=== PATIENT | male | born 1950 | race African-American/Black ===

== ENCOUNTER 2020-04-15 12:51 | Emergency (ER) | payer MEDICARE, SELFPAY ==
[2020-04-15 12:56] VITALS: BP 155/76; PULSE 106; RESP 18; TEMP 36.3; O2SAT 97
--- NOTE | 2020-04-15 13:10 | ECG_ITS ---
Measurements Intervals [place] Rate: 87 P: NV: 0 QRS: 72 QRSD: 89 T: 72 QT: 377 QTc: 454 Interpretive Statements SINUS RHYTHM ATRIAL PREMATURE COMPLEXES NONSPECIFIC T-WAVE ABNORMALITY- INFERIOR LEADS BASELINE ARTIFACT- I, II, AVR, AVL, AVF, V1-V6 ABNORMAL ECG Electronically Signed On 04-15-2020 13:34:28 CLINICAL NURSING DIRECTOR by Erik Hart D.O.
[2020-04-15 15:00] VITALS: BP 146/78; PULSE 88; RESP 16; O2SAT 100
--- NOTE | 2020-04-15 15:09 | ED.GENADULT ---
HPI - General Adult General Chief complaint: Allergic Reaction Stated complaint: reaction to omeprazole Time Seen by Provider: 04/15/20 13:40 Source: patient Mode of arrival: ambulatory Limitations: no limitations History of Present Illness HPI narrative: Patient is a 69-year-old male who presented to emergency department for evaluation of concern for not feeling well that has been present for 2 weeks noting that he started to feel this way when he began to take omeprazole for reflux patient on arrival to emergency department is in no distress denying any pain or recent illness patient discontinued taking his omeprazole this morning patient is followed by primary care for this patient in no distress upon arrival denying any pain Related Data Allergies Allergy/AdvReac Type Severity Reaction Status Date / Time codeine Allergy Anaphylactic Verified 04/15/20 13:02 Shock Review of Systems Review of Systems: All systems reviewed & are unremarkable except as noted in HPI and below PMFSH Past Medical History Medical History Gastroesophageal reflux disease IBS (irritable bowel syndrome) Social History Social History Smoking status: Never smoker Gender identity (if verbalized by the patient): Female Exam Narrative: Exam Narrative: GENERAL: Well-appearing, well-nourished, and in no acute distress. HEAD: Normocephalic, atraumatic. EYES: PERRLA and EOMI. ENT: Nares clear, no rhinorrhea or epistaxis. Mucous membranes moist. CHEST: Clear to auscultation. No respiratory distress. No wheezes rales or rhonchi HEART: Regular rate and rhythm. No murmur heard. Normal peripheral pulses. ABDOMEN: Soft, nontender, nondistended EXTREMITIES: Normal range of motion. No edema. SKIN: Warm, dry, no rash. NEURO: No focal deficits. Alert and oriented x3. Cranial nerves II through XII grossly intact. Normal speech and gait PSYCH: Normal mood and affect. Course Course Emergency Course: Patient in the room no distress no high risk changes in the evaluation will be discharged home ABCs and vital signs intact and stable Vital Signs Vital signs: Vital Signs Temperature 97.3 F L 04/15/20 12:56 Pulse Rate 106 H 04/15/20 12:56 Respiratory Rate 18 04/15/20 12:56 Blood Pressure 155/76 H 04/15/20 12:56 Pulse Oximetry 97 04/15/20 12:56 Temperature 97.3 F L 04/15/20 12:56 Pulse Rate 106 H 04/15/20 12:56 Respiratory Rate 18 04/15/20 12:56 Blood Pressure 155/76 H 04/15/20 12:56 Pulse Oximetry 97 04/15/20 12:56 Medical Decision Making MDM Narrative Medical decision making narrative: Patient advised to discontinue taking his omeprazole as the symptoms began around the time of beginning it will be switched to a different medication hemodynamically stable no distress felt appropriate for outpatient reevaluation provided with reasons to return patient agrees with this plan Vital Signs Vital Signs: Vital Signs Temperature 97.3 F L 04/15/20 12:56 Pulse Rate 106 H 04/15/20 12:56 Respiratory Rate 18 04/15/20 12:56 Blood Pressure 155/76 H 04/15/20 12:56 Pulse Oximetry 97 04/15/20 12:56 Temperature 97.3 F L 04/15/20 12:56 Pulse Rate 106 H 04/15/20 12:56 Respiratory Rate 18 04/15/20 12:56 Blood Pressure 155/76 H 04/15/20 12:56 Pulse Oximetry 97 04/15/20 12:56 Lab Data Result diagrams: 04/15/20 15:35 04/15/20 15:36 Labs: Lab Results 04/15/20 04/15/20 04/15/20 Range/Units 15:35 15:35 15:36 WBC 6.7 (4.5-10.0) K/mm3 RBC 5.12 (4.6-6.20) M/mm3 Hgb 14.8 (14.0-18.0) g/dL Hct 46.6 (42.0-52.0) % MCV 91.0 (80-100) fl MCH 28.9 (26-34) pg MCHC 31.8 L (32-36) g/dl RDW 12.9 (11.5-14.5) % Plt Count 240 (150-375) k/mm3 MPV 9.8 (7.4-10.4) fl Immature Gran % (Auto) 0.4 (0-0.5) % Neut % (Auto) 65.
[2020-04-15 15:45] LABS: Basophils Percent Auto 0.4 % (0.2-1.2); Eosinophils Percent Auto 0.6 % (0-4.4); Hematocrit 46.6 % (42.0-52.0); Hemoglobin 14.8 g/dL (14.0-18.0); Immature Granulocyte Absolute 0.03 K/mm3 (0.00-0.031); Immature Granulocyte Percent A 0.4 % (0-0.5); Lymphocytes Absolute Auto 1.56 K/mm3 (0.9-3.2); Lymphocytes Percent Auto 23.3 % (18.3-44.2); Mean Corpuscular HGB Conc 31.8 g/dl (32-36); Mean Corpuscular Hemoglobin 28.9 pg (26-34); Mean Platelet Volume 9.8 fl (7.4-10.4); Monocytes Absolute Auto 0.6 K/mm3 (0.1-0.6); Monocytes Percent Auto 9.6 % (2.6-8.5); Neutrophils Absolute Auto 4.4 K/mm3 (1.3-6.7); Neutrophils Percent Auto 65.7 % (45.5-73.1); Platelet Count Result 240 k/mm3 (150-375); Red Blood Count 5.12 M/mm3 (4.6-6.20); Red Cell Distribution Width 12.9 % (11.5-14.5); White Blood Count 6.7 K/mm3 (4.5-10.0)
[2020-04-15 15:47] LABS: Add Urine Microscopic? NO; Appearance Urine Clear (Clear); Bilirubin Urine Negative (Negative); Blood Urine Negative (Negative); Color Urine Straw (Yellow); Glucose Urine UA Negative (Negative); Ketones Urine Negative (Negative); Leukocyte Esterase Ur Negative LEU/UL (Negative); Nitrate Urine Negative (Negative); Protein Urine Negative (Negative); Specific Grav Ur 1.005 (1.001-1.035); Urobilinogen Urine Negative mg/dL (<2.0)
[2020-04-15 15:58] LABS: Alanine Aminotransferase 22 U/L (4-50); Albumin Level 4.7 g/dL (3.5-5.1); Alkaline Phosphatase 68 U/L (38-126); Anion Gap 7 mmol/L (8-16); Aspartate Amino Transferase 36 U/L (17-59); Bilirubin,Total 0.5 mg/dL (0.2-1.3); Blood Urea Nitrogen 12 mg/dL (9-20); Calcium 9.5 mg/dL (8.4-10.2); Carbon Dioxide 30 mmol/L (22-30); Chloride 104 mmol/L (98-107); Estimated CRCL calculation 71 ml/min; Estimated Glomerular Filt Rate > 60; Glucose 97 mg/dL (75-110); Sodium 141 mmol/L (137-145)
== END 2020-04-15 16:53 | disposition home or self-care (01) ==
PROVIDERS: Emergency Medicine Emergency Medical Services; Emergency Provider Emergency Medicine; PCP Internal Medicine
DX: R42 Dizziness and giddiness (principal); T47.1X5A Adverse effect of other antacids and anti-gastric-secretion drugs, initial encounter; K21.9 Gastro-esophageal reflux disease without esophagitis; K58.9 Irritable bowel syndrome, unspecified; I49.1 Atrial premature depolarization; R94.31 Abnormal electrocardiogram [ECG] [EKG]
CPT/HCPCS: 36415; 80053; 81003; 85025; 93005; 99283

== ENCOUNTER 2024-06-10 15:09 | Emergency (ER) | payer MEDICARE, SELFPAY ==
[2024-06-10] VITALS (19 sets, daily range): BP systolic 121–155; BP diastolic 72–91; PULSE 62–83; RESP 11–20; TEMP 36.4–36.6; O2SAT 93–100
--- NOTE | ~2024-06-10 | XR_ITS ---
EXAMINATION: XR chest 2V DATE: 06/10/2024 15:35 INDICATION: Chest pain TECHNIQUE: PA and lateral views of the chest were obtained. COMPARISON: None FINDINGS: The lungs are clear with no focal airspace opacities, pulmonary edema, pleural effusion or pneumothor ax. The cardiomediastinal silhouette is normal. Mild thoracic spondylosis with chronic appearing mini mal to mild anterior wedging of a few mid thoracic vertebral bodies. IMPRESSION: 1. No acute cardiopulmonary disease. Reviewed, dictated and finalized at location B.
--- NOTE | 2024-06-10 15:12 | ECG_ITS ---
Test Date: 2024-06-10 15:24:38 Measurements Intervals [place] Rate: 85 P: 81 CT: 148 QRS: 70 QRSD: 95 T: 54 QT: 377 QTc: 449 Interpretive Statements SINUS RHYTHM MINIMAL Q WAVES- INF/LAT LEADS BORDERLINE ECG No previous ECG available for comparison Electronically Signed On 06-10-2024 17:04:31 CDT by Erik Hart D.O.
--- NOTE | 2024-06-10 15:20 | ED_ITS ---
HPI - Chest Pain General Chief Complaint: Chest Pain <Stephany Spann PA-C - Last Filed: 06/11/24 10:54> Stated Complaint: CP <Stephany Spann PA-C - Last Filed: 06/11/24 10:54> Time Seen by Provider: 06/10/24 15:20 <Stephany Spann PA-C - Last Filed: 06/11/24 10:54> Focused HPI: This is a 73 year old male that presents to the ER for several complaints. Reports upper back pain. Ongoing over the last couple of weeks. Reports congestion, rhinorrhea, sinus pain. Reports urinary frequency. Denies fevers. GENERAL: Well-appearing, well-nourished, and in no acute distress. HEAD: Normocephalic, atraumatic. CHEST: Clear to auscultation. ?No respiratory distress. HEART: Regular rate and rhythm.? NEURO: ?Alert and oriented x3. Patient screened in triage and initial orders placed.? ?Additional care and disposition to be based upon?diagnostic testing and treatment. <Stephany Spann PA-C - Last Filed: 06/11/24 10:54> Focused HPI: This is a 73 year old male that presents to the ER for several complaints. Reports upper back pain. Ongoing over the last couple of weeks. Reports congestion, rhinorrhea, sinus pain. Reports urinary frequency. Denies fevers. Patient states his most chief complaint is that he was walking his dog and started having some chest palpitations and heart was pounding associated with some minor shortness of breath that is now resolved. States he went to urgent care and was referred to the emergency department for further evaluation. States he has had no symptoms since arriving to the emergency department denies any complaints at this time. GENERAL: Well-appearing, well-nourished, and in no acute distress. HEAD: Normocephalic, atraumatic. CHEST: Clear to auscultation. ?No respiratory distress. HEART: Regular rate and rhythm.? NEURO: ?Alert and oriented x3. Patient screened in triage and initial orders placed.? ?Additional care and disposition to be based upon?diagnostic testing and treatment. <Mayito Bay MD - Last Filed: 06/10/24 22:41> History of Present Illness HPI narrative: Agree with the HPI above <Mayito Bay MD - Last Filed: 06/10/24 22:41> Related Data Allergies/Adverse Reactions: Allergies Allergy/AdvReac Type Severity Reaction Status Date / Time codeine Allergy Severe COULDN'T Verified 06/10/24 15:31 BREATH, COULDN'T MOVE <Stephany Spann PA-C - Last Filed: 06/11/24 10:54> Review of Systems 2 Review of Systems: As reviewed above in HPI <Mayito Bay MD - Last Filed: 06/10/24 22:41> PMFSH Past Medical History Medical History: Medical History Gastroesophageal reflux disease IBS (irritable bowel syndrome) <Stephany Spann PA-C - Last Filed: 06/11/24 10:54> Social History Social History: Social History Smoking status: Never smoker Gender identity (if verbalized by the patient): Female <Stephany Spann PA-C - Last Filed: 06/11/24 10:54> Exam 2 Narrative: GENERAL: [Well-appearing, well-nourished, and in no acute distress.] HEAD: [Normocephalic, atraumatic.] EYES: [PERRLA and EOMI.] ENT: Nares clear, no rhinorrhea or epistaxis. Mucous membranes moist. NECK: Supple. CHEST: [Clear to auscultation. No respiratory distress.] HEART: [Regular rate and rhythm]. No murmur heard. [Normal peripheral pulses.] ABDOMEN: [Soft, nondistended], [nontender], [No rigidity or guarding] EXTREMITIES: Normal range of motion. [No edema.] SKIN: Warm, dry, no rash. NEURO: [No focal deficits]. Alert and oriented [x3.] PSYCH: [Normal mood and affect.] <Mayito Bay MD - Last Filed: 06/10/24 22:41> Course Vital Signs Vital signs: Vital Signs Temperature 97.6 F 06/10/24 15:26 Pulse Rate 77 06/10/24 15:26 Respiratory Rate 17 06/10/24 15:26 Blood Pressure 155/72 H 06/10/24 15:26 Pulse Oximetry 100 06/10/24 15:26 Oxygen Delivery Room Air 06/10/24 15:26 Temperature 97.9 F 06/10/24 23:01 Pulse Rate 70 06/10/24 23:01 Respiratory Rate 16 06/10/24 23:01 Blood Pressure 121/73 06/10/24 23:01 Pulse Oximetry 98 06/10/24 23:01 Oxygen Delivery Room Air 06/10/24 21:08 <Stephany Spann PA-C - Last Filed: 06/11/24 10:54> Vital Signs Temperature 97.6 F 06/10/24 15:26 Pulse Rate 77 06/10/24 15:26 Respiratory Rate 17 06/10/24 15:26 Blood Pressure 155/72 H 06/10/24 15:26 Pulse Oximetry 100 06/10/24 15:26 Oxygen Delivery Room Air 06/10/24 15:26 Temperature 97.9 F 06/10/24 23:01 Pulse Rate 70 06/10/24 23:01 Respiratory Rate 16 06/10/24 23:01 Blood Pressure 121/73 06/10/24 23:01 Pulse Oximetry 98 06/10/24 23:01 Oxygen Delivery Room Air 06/10/24 21:08 <Mayito Bay MD - Last Filed: 06/10/24 22:41> MDM - Chest Pain MDM Narrative Medical decision making narrative: 73-year-old male presenting to the emergency department for evaluation of chest discomfort, shortness of breath and pounding heartbeat. Patient states that he had a lot of things going on and recently got insurance and want to be checked out. He states that he went to urgent care and was referred to the emergency department today for evaluation. Reports that he has had some difficulties with short-term memory for quite some time making it hard to explain symptoms. He was concerned that he was having potential anxiety versus panic attack this morning while he was walking his dog. He states he is no longer having any chest discomfort or shortness a breath. Denies any headache, vision changes, nausea, vomiting, abdominal pain, back pain. His is at bedside and provides collateral formation. Patient self has no symptoms at this time which is reassuring as his examination is unremarkable. He has strong symmetric pulses, clear breath sounds throughout, no murmurs on auscultation. Soft nontender nondistended abdomen, full symmetric strength and sensation throughout both arms and legs, no swelling in the legs or signs of DVT. Cardiac workup was ordered including serial troponins, CBC, CMP, chest x-ray, EKG. Urinalysis ordered. Patient's workup was reassuring. No leukocytosis or significant anemia. Normal platelet count. Coagulation panel is normal. Normal electrolytes, normal renal function, normal glucose, normal LFTs and negative lipase. Initial and delta troponin are negative. Chest x-ray shows no acute cardiopulmonary process. EKG shows sinus rhythm, no ST segment elevations, depressions or inversions. Patient remained asymptomatic during re-evaluation. Normal vital signs and unremarkable except laboratory studies. He can be safely discharged home at this time with regular primary care provider follow-up. Encouraged to call tomorrow morning to set up a close follow-up visit which patient and at bedside verbalized understanding. <Mayito Bay MD - Last Filed: 06/10/24 22:41> Medical Records Data Attestation: I reviewed the patient's medical records. <Mayito Bay MD - Last Filed: 06/10/24 22:41> Lab Data Attestation: I reviewed the patient's lab results. <Mayito Bay MD - Last Filed: 06/10/24 22:41> Result diagrams: 06/10/24 17:53 06/10/24 17:53 <Stephany Spann PA-C - Last Filed: 06/11/24 10:54> Labs: Lab Results 06/10/24 06/10/24 06/10/24 Range/Units 17:53 21:21 22:25 WBC 9.8 (4.5-10.0) K/mm3 RBC 4.75 (4.6-6.20) M/mm3 Hgb 13.5 L (14.0-18.0) g/dL Hct 43.5 (42.0-52.0) % MCV 91.6 (80-100) fl MCH 28.4 (26-34) pg MCHC 31.0 L (32-36) g/dl RDW 13.3 (11.5-14.5) % Plt Count 223 (150-375) k/mm3 MPV 9.7 (7.4-10.4) fl Immature Gran % (Auto) 0.4 (0-0.5) % Neut % (Auto) 75.8 H (45.5-73.1) % Lymph % (Auto) 15.7 L (18.3-44.2) % [place] % (Auto) 7.6 (2.6-8.5) % Eos % (Auto) 0.3 (0-4.4) % Baso % (Auto) 0.2 (0.2-1.2) % Lymph # (Auto) 1.54 (0.9-3.2) K/mm3 [place] # (Auto) 0.7 H (0.1-0.6) K/mm3 Eos # (Auto) 0.0 (0-0.3) K/mm3 Baso # (Auto) 0.0 (0.0-0.1) K/mm3 Abs Immat Gran (auto) 0.04 H (0.00-0.031) K/mm3 Absolute Neuts (auto) 7.4 H (1.3-6.7) K/mm3 Absolute Nucleated RBC 0.000 (0.0-0.012) K/mm3 Nucleated RBC % 0.0 (0.0-0.2) % PT 13.7 (11.1-14.7) Seconds INR 1.0 APTT 25.5 (22.3-36.8) Seconds Sodium 140 (137-145) mmol/L Potassium 4.1 (3.4-5.0) mmol/L Chloride 105 (98-107) mmol/L Carbon Dioxide 28 (22-30) mmol/L Anion Gap 7 (4-12) mmol/L BUN 11 (9-20) mg/dL Creatinine 0.93 (0.7-1.3) mg/dL Estim Creat Clear Calc 65 ml/min Estimated GFR > 60 (59 - ) Glucose 93 (65-110) mg/dL Calcium 9.2 (8.4-10.2) mg/dL Total Bilirubin 0.4 (0.2-1.3) mg/dL AST 36 (17-59) U/L ALT 22 (6-50) U/L Alkaline Phosphatase 60 (38-126) U/L Troponin I < 0.012 < 0.012 (0.000-0.034) ng/mL Total Protein 8.0 (6.3-8.2) g/dL Albumin 4.6 (3.5-5.1) g/dL Lipase 126 (23-300) U/L Urine Color Yellow (Yellow) Urine Appearance Clear (Clear) Urine pH 6.0 (5.0-9.0) Ur Specific [place] 1.020 (1.001-1.035) Urine Protein Negative (Negative) mg/dL Urine Glucose (UA) Negative (Negative) mg/dL Urine Ketones 1+ H (Negative) mg/dL Ur Blood (Man) Negative (Negative) Urine Nitrate Negative (Negative) Urine Bilirubin Negative (Negative) Urine Urobilinogen 1.0 (<2.0) mg/dL Leukocyte Esterase Rfl Negative (Negative) CORRY/UL <Stephany Spann PA-C - Last Filed: 06/11/24 10:54> Lab Results 06/10/24 06/10/24 06/10/24 Range/Units 17:53 21:21 22:25 WBC 9.8 (4.5-10.0) K/mm3 RBC 4.75 (4.6-6.20) M/mm3 Hgb 13.5 L (14.0-18.0) g/dL Hct 43.5 (42.0-52.0) % MCV 91.6 (80-100) fl MCH 28.4 (26-34) pg MCHC 31.0 L (32-36) g/dl RDW 13.3 (11.5-14.5) % Plt Count 223 (150-375) k/mm3 MPV 9.7 (7.4-10.4) fl Immature Gran % (Auto) 0.4 (0-0.5) % Neut % (Auto) 75.8 H (45.5-73.1) % Lymph % (Auto) 15.7 L (18.3-44.2) % Miner % (Auto) 7.6 (2.6-8.5) % Eos % (Auto) 0.3 (0-4.4) % Baso % (Auto) 0.2 (0.2-1.2) % Lymph # (Auto) 1.54 (0.9-3.2) K/mm3 Miner # (Auto) 0.7 H (0.1-0.6) K/mm3 Eos # (Auto) 0.0 (0-0.3) K/mm3 Baso # (Auto) 0.0 (0.0-0.1) K/mm3 Abs Immat Gran (auto) 0.04 H (0.00-0.031) K/mm3 Absolute Neuts (auto) 7.4 H (1.3-6.7) K/mm3 Absolute Nucleated RBC 0.000 (0.0-0.012) K/mm3 Nucleated RBC % 0.0 (0.0-0.2) % PT 13.7 (11.1-14.7) Seconds INR 1.0 APTT 25.5 (22.3-36.8) Seconds Sodium 140 (137-145) mmol/L Potassium 4.1 (3.4-5.0) mmol/L Chloride 105 (98-107) mmol/L Carbon Dioxide 28 (22-30) mmol/L Anion Gap 7 (4-12) mmol/L BUN 11 (9-20) mg/dL Creatinine 0.93 (0.7-1.3) mg/dL Estim Creat Clear Calc 65 ml/min Estimated GFR > 60 (59 - ) Glucose 93 (65-110) mg/dL Calcium 9.2 (8.4-10.2) mg/dL Total Bilirubin 0.4 (0.2-1.3) mg/dL AST 36 (17-59) U/L ALT 22 (6-50) U/L Alkaline Phosphatase 60 (38-126) U/L Troponin I < 0.012 < 0.012 (0.000-0.034) ng/mL Total Protein 8.0 (6.3-8.2) g/dL Albumin 4.6 (3.5-5.1) g/dL Lipase 126 (23-300) U/L Urine Color Yellow (Yellow) Urine Appearance Clear (Clear) Urine pH 6.0 (5.0-9.0) Ur Specific [place] 1.020 (1.001-1.035) Urine Protein Negative (Negative) mg/dL Urine Glucose (UA) Negative (Negative) mg/dL Urine Ketones 1+ H (Negative) mg/dL Ur Blood (Man) Negative (Negative) Urine Nitrate Negative (Negative) Urine Bilirubin Negative (Negative) Urine Urobilinogen 1.0 (<2.0) mg/dL Leukocyte Esterase Rfl Negative (Negative) CORRY/UL <Mayito Bay MD - Last Filed: 06/10/24 22:41> Imaging Data Attestation: I personally reviewed and interpreted this imaging study as follows: < Mayito Bay MD - Last Filed: 06/10/24 22:41> My impression: Impressions Chest X-Ray 06/10/24 15:35 IMPRESSION: 1. No acute cardiopulmonary disease. <Mayito Bay MD - Last Filed: 06/10/24 22:41> ECG Data EKG #1: Attestation: I personally reviewed and interpreted this ECG as follows: < Mayito Bay MD - Last Filed: 06/10/24 22:41> ECG completion date: 06/10/24 <Mayito Bay MD - Last Filed: 06/10/24 22:41> ECG completion time: 15:24 <Mayito Bay MD - Last Filed: 06/10/24 22:41> Prior ECG tracings: not available for review <Mayito Bay MD - Last Filed: 06/10/24 22:41> Interpretation: Rate of 85 beats per minute, QTC 449, QRS 95, CA interval 148. No ST segment elevations, depressions or inversions. No previous EKG for comparison. Follow interpretation sinus rhythm. <Mayito Bay MD - Last Filed: 06/10/24 22:41> Critical Care Time Critical Care Time Critical Care Time: No <Stephany Spann PA-C - Last Filed: 06/11/24 10:54> Discharge Plan Discharge Clinical Impression: Chest pain Qualifiers: Chest pain type: unspecified Qualified Code(s): R07.9 - Chest pain, unspecified <Stephany Spann PA-C - Last Filed: 06/11/24 10:54> Patient Disposition: Home <Stephany Spann PA-C - Last Filed: 06/11/24 10:54> Condition: Stable <Stephany Spann PA-C - Last Filed: 06/11/24 10:54> Instructions: Antibiotic Form, Chest Pain (ED) <Stephany Spann PA-C - Last Filed: 06/11/24 10:54> Additional Instructions: Your cardiac enzymes are negative x2, your laboratory studies are all normal. Follow-up with your regular doctor and call tomorrow morning to establish a visit in the next week or 2. If you have any recurrence of your chest pain or new symptoms please return to the emergency department otherwise follow-up outpatient. <Stephany Spann PA-C - Last Filed: 06/11/24 10:54> Patient Language: Bel[place]ian <Stephany Spann PA-C - Last Filed: 06/11/24 10:54> Prescriptions: No Action famotidine [Pepcid] 20 mg tablet 20 mg PO BID Qty: 14 0RF <Stephany Spann PA-C - Last Filed: 06/11/24 10:54> Follow-up/Referrals: Kurtis,Rk Brown MD [Primary Care Provider] - <Stephany Spann PA-C - Last Filed: 06/11/24 10:54> Time of Disposition: 22:41 <Stephany Spann PA-C - Last Filed: 06/11/24 10:54> 22:41 <Mayito Bay MD - Last Filed: 06/10/24 22:41>
[2024-06-10 18:05] LABS: Basophils Percent Auto 0.2 % (0.2-1.2); Eosinophils Percent Auto 0.3 % (0-4.4); Hematocrit 43.5 % (42.0-52.0); Hemoglobin 13.5 g/dL (14.0-18.0); Immature Granulocyte Absolute 0.04 K/mm3 (0.00-0.031); Immature Granulocyte Percent A 0.4 % (0-0.5); Lymphocytes Absolute Auto 1.54 K/mm3 (0.9-3.2); Lymphocytes Percent Auto 15.7 % (18.3-44.2); Mean Corpuscular Hemoglobin 28.4 pg (26-34); Mean Corpuscular Volume 91.6 fl (80-100); Mean Platelet Volume 9.7 fl (7.4-10.4); Monocytes Absolute Auto 0.7 K/mm3 (0.1-0.6); Monocytes Percent Auto 7.6 % (2.6-8.5); Neutrophils Absolute Auto 7.4 K/mm3 (1.3-6.7); Neutrophils Percent Auto 75.8 % (45.5-73.1); Platelet Count Result 223 k/mm3 (150-375); Red Blood Count 4.75 M/mm3 (4.6-6.20); Red Cell Distribution Width 13.3 % (11.5-14.5); White Blood Count 9.8 K/mm3 (4.5-10.0)
[2024-06-10 18:17] LABS: Alanine Aminotransferase 22 U/L (6-50); Albumin Level 4.6 g/dL (3.5-5.1); Alkaline Phosphatase 60 U/L (38-126); Anion Gap 7 mmol/L (4-12); Aspartate Amino Transferase 36 U/L (17-59); Bilirubin,Total 0.4 mg/dL (0.2-1.3); Blood Urea Nitrogen 11 mg/dL (9-20); Calcium 9.2 mg/dL (8.4-10.2); Carbon Dioxide 28 mmol/L (22-30); Chloride 105 mmol/L (98-107); Estimated CRCL calculation 65 ml/min; Estimated Glomerular Filt Rate > 60; Glucose 93 mg/dL (65-110); Lipase 126 U/L (23-300); Potassium 4.1 mmol/L (3.4-5.0); Sodium 140 mmol/L (137-145)
[2024-06-10 18:29] LABS: Troponin I < 0.012 ng/mL (0.000-0.034)
[2024-06-10 18:34] LABS: Prothrombin Time 13.7 Seconds (11.1-14.7)
[2024-06-10 18:35] LABS: Partial Thromboplastin Time 25.5 Seconds (22.3-36.8)
--- NOTE | 2024-06-10 21:09 | ECG_ITS ---
Test Date: 2024-06-10 21:21:45 Measurements Intervals [place] Rate: 65 P: 59 MD: 136 QRS: 58 QRSD: 98 T: 50 QT: 404 QTc: 423 Interpretive Statements SINUS RHYTHM WITH OCCASIONAL SUPRAVENTRICULAR PREMATURE COMPLEXES MINIMAL Q WAVES- INF/LAT LEADS BASELINE ARTIFACT- I, III, AVR, AVL, AVF BORDERLINE ECG Compared to ECG 06/10/2024 15:24:38 No significant changes Electronically Signed On 06-11-2024 06:17:53 CDT by Erik Hart D.O.
[2024-06-10 22:14] LABS: Troponin I < 0.012 ng/mL (0.000-0.034)
[2024-06-10 22:32] LABS: Add Urine Microscopic? NO; Appearance Urine Clear (Clear); Bilirubin Urine Negative (Negative); Blood Urine Negative (Negative); Color Urine Yellow (Yellow); Glucose Urine UA Negative (Negative); Ketones Urine 1+ mg/dL (Negative); Leukocyte Esterase Ur Negative LEU/UL (Negative); Nitrate Urine Negative (Negative); Protein Urine Negative (Negative)
== END 2024-06-10 23:02 | disposition home or self-care (01) ==
PROVIDERS: Emergency Medicine; Physician Assistant; Emergency Provider Student in an Organized Health Care Education/Training Program; PCP Internal Medicine
DX: R07.9 Chest pain, unspecified (principal); K21.9 Gastro-esophageal reflux disease without esophagitis; K58.9 Irritable bowel syndrome, unspecified; I49.1 Atrial premature depolarization
CPT/HCPCS: 36415; 71046; 80053; 81003; 83690; 84484; 85025; 85610; 85730; 93005; 99284